=== PATIENT | female | born 1985 | race Caucasian/White ===

== ENCOUNTER 2018-04-21 06:43 | Inpatient (IN) ==
[2018-04-21 07:03] VITALS: RESP 18
[2018-04-21] MEDS ORDERED: Sodium Chlor 0.9% Inj 500 ML IV.SIG PRN (08:40)
[2018-04-21] MEDS ORDERED: Naloxone Inj 0.4 MG/ML Vial IV.PUSH PRN ×2 (08:40→16:50)
[2018-04-21] MEDS ORDERED: fentaNYL Citrate Inj 100 MCG/2 ML Ampul IV.PUSH PRN ×2 (08:40)
[2018-04-21] MEDS ORDERED: Sod Chloride 0.9% Inj 1,000 ML IV.CONT PRN (08:40)
[2018-04-21] MEDS ORDERED: Oxytocin 30 Units/500ml Premix 30 UNITS/500 ML BAG IV.SIG ONE (08:40)
[2018-04-21] MEDS ORDERED: Citric Acid/Sodium Citrate Liq 30 ML UDC PO SCH (08:45)
[2018-04-21 08:57] LABS: Baso % (Auto) 0.2 % (0.0-2.0); Eos % (Auto) 0.1 % (0.0-4.0); Hematocrit 29.4 % (35.0-46.0); Hemoglobin 10.1 gm/dL (11.6-15.3); Lymph # (Auto) 1.8 th/mm3 (1.0-4.8); Lymph % (Auto) 22.7 % (9.0-44.0); Mean Corpuscular HGB Conc 34.3 % (32.0-36.0); Mean Corpuscular Hemoglobin 28.1 pg (27.0-34.0); Mean Corpuscular Volume 81.9 fL (80.0-100.0); Mean Platelet Volume 7.7 fL (7.0-11.0); Mono # (Auto) 0.4 th/mm3 (0.0-0.9); Mono % (Auto) 5.4 % (0.0-8.0); Neut # (Auto) 5.8 th/mm3 (1.8-7.7); Neut % (Auto) 71.6 % (16.0-70.0); Platelet Count 269 th/mm3 (150-450); Red Blood Count 3.59 mil/mm3 (4.00-5.30); Red Cell Distribution Width 13.8 % (11.6-17.2); White Blood Count 8.1 th/mm3 (4.0-11.0)
[2018-04-21 09:08] LABS: Amphetamine Urine With Conf Neg (Neg); Benzodiazepine Urine With Conf Neg (Neg)
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
[2018-04-21] MEDS ORDERED: Penicillin G Potassium Inj 5,000,000 UNIT in Sodium Chloride 0.9% Inj 100 ML IV.SIG ONE (09:30)
[2018-04-21] MEDS ORDERED: Oxytocin 30 Units/500ml Premix 30 UNITS/500 ML BAG IV.SIG PRN (12:00)
[2018-04-21] MEDS ORDERED: Penicillin G Potassium Inj 2,500,000 UNIT in Sodium Chlor 0.9% Inj 100 ML IV.SIG SCH (14:00)
[2018-04-21] MEDS ORDERED: fentaNYL 2MCG-Bupiv 0.125% Epi 150 ML EPIDURAL ONE (15:30)
[2018-04-21] MEDS ORDERED: Zolpidem Tartrate 5 MG Tablet PO PRN (16:50)
[2018-04-21] MEDS ORDERED: Witch Hazel 50%/Glyderin 12.5% 40 Pad Jar RECTAL PRN (16:50)
[2018-04-21] MEDS ORDERED: Benzocaine 20% Top Spray 60 ML Can TOPICAL PRN (16:50)
[2018-04-21] MEDS ORDERED: Bisacodyl 10 MG Supp RECTAL PRN (16:50)
--- NOTE | 2018-04-21 16:58 | P.OBDELI ---
Weeks Gestation: 39 Medical Induction of Labor: Yes Artificial Rupture of Membrane: Yes Anesthesia: Epidural Episiotomy: none Vaginal Delivery: Normal Presentation: Occiput anterior Nuchal Cord: None Delayed Cord Clamping (45 sec): Yes Placenta: Spontaneous delivery, Intact Laceration: None Estimated blood loss (mL): 100 Infant: Female Infant Female A score (1 min): 9 score (5 min): 9 Additional Information: Head delivered by maternal effort. No nuchal cord appreciated. Anterior shoulder delivered without complication. Placenta delivered without complication. No lacerations. Addendum I personally attended and supervised this delivery
[2018-04-21] MEDS ORDERED: fentaNYL 2MCG-Bupiv 0.125% Epi 150 ML EPIDURAL PRN (17:50)
[2018-04-21] MEDS ORDERED: fentaNYL Citrate Inj 100 MCG/2 ML Ampul EPIDURAL ONE (17:50)
[2018-04-21] MEDS ORDERED: Measles/Mumps/Rubella Vaccine Inj 0.5 ML Vial SQ ONE (18:00)
[2018-04-21] MEDS ORDERED: Diphtheria/Tetanus/Pertussis Vaccine Inj 0.5 ML Syringe IM ONE (18:00)
[2018-04-21] MEDS ORDERED: Oxytocin 30 Units/500ml Premix 30 UNITS/500 ML BAG IV.CONT SCH (18:00)
[2018-04-21] MEDS: Ibuprofen 400 MG Tablet PO PRN (23:05)
[2018-04-21] MEDS: Acetaminophen 325 MG Tablet PO PRN (23:06)
[2018-04-21] MEDS: Senna/Docusate Sodium 8.6/50 MG Tablet PO SCH (23:07)
[2018-04-22] MEDS: Acetaminophen 325 MG Tablet PO PRN ×2 (08:15→19:53)
[2018-04-22] MEDS: Ibuprofen 400 MG Tablet PO PRN (08:15)
--- NOTE | 2018-04-22 08:36 | P.PNOB ---
Subjective Post day: 1 Interval history: Patient is a 32-year-old delivered at 39 weeks and 0 days. Patient is day 1after . Patient's pain is well-controlled. Having some back pain from epidural placement. Patient reports eating and drinking without any nausea or vomiting. Patient reports minimal bleeding. Patient has not passed gas and bowel movements. Patient is walking without lower extremity pain or shortness of breath. Patient reports desire for contraception different than depo shot. She is formula feeding Objective Vital Signs/I&O: Vital Signs 04/21/18 09:05 04/21/18 17:30 04/21/18 18:00 Temperature 99.0 F Pulse Rate 72 67 69 Respiratory Rate 18 18 18 Blood Pressure 107/67 126/71 124/91 H 04/21/18 18:45 04/22/18 08:27 Temperature 98.5 F 98.2 F Pulse Rate 69 88 Respiratory Rate 18 Blood Pressure 122/69 118/71 Intake & Output 04/21/18 04/22/18 04/22/18 18:59 06:59 18:59 Weight 76.657 kg Other: Weight On Admission 76.657 kg Result Diagrams: 04/21/18 08:32 Objective Remarks: GENERAL: Well-nourished, well-developed patient. CARDIOVASCULAR: Regular rate and rhythm without murmurs, gallops, or rubs. RESPIRATORY: Breath sounds equal bilaterally. No accessory muscle use. ABDOMEN/GI: Abdomen soft, non-tender. Fundus: Firm, non-tender at umbilicus. GENITOURINARY: Light to moderate bleeding. EXTREMITIES: No cyanosis or edema, non-tender, without signs of DVT. MSK: back some tenderness but no bruising Medications and IVs: Active Medications Acetaminophen (Tylenol) 650 mg PO Q4H PRN PRN Reason: PAIN SCALE 1 TO 2 Last Admin: 04/21/18 23:06 Dose: 650 mg Al Hydroxide/Mg Hydroxide (Milk Of Magnesia Liq) 30 ml PO Q12H PRN PRN Reason: Mild Constipation Benzocaine (Americaine 20% Top [place]) 1 spray TOPICAL Q4H PRN PRN Reason: For Perineum Discomfort Bisacodyl (Dulcolax Supp) 10 mg RECTAL DAILY PRN PRN Reason: SEVERE CONSITIPATION Ephedrine Sulfate (Ephedrine/Ns Syringe) 10 mg IV.PUSH UNSCH PRN PRN Reason: SEE LABEL COMMENTS Stop: 04/22/18 17:50 Fentanyl/Bupivacaine/Sodium Chlor (Fentanyl 2 Mcg-Bupiv 0.125% Epi) 150 mls @ 10 mls/hr EPIDURAL PRN PRN PRN Reason: for Labor Pain Oxytocin (Pitocin 30 Units/Ns 500 Ml Premix) 30 units in 500 mls @ 2 mls/hr IV.SIG TITRATE PRN; Protocol PRN Reason: For induction of labor Last Admin: 04/21/18 11:38 Dose: 2 milliunit/min, 2 mls/hr Lactulose (Lactulose Liq) 30 ml PO DAILY PRN PRN Reason: SEVERE CONSITIPATION Miscellaneous Information (Misc Information) 1 each OTHER UNSCH PRN PRN Reason: SEE LABEL COMMENTS Stop: 04/22/18 17:50 Miscellaneous Information (Misc Information) 1 each OTHER UNSCH PRN PRN Reason: SEE LABEL COMMENTS Stop: 04/22/18 17:50 Naloxone HCl (Narcan Inj) 0.1 mg IV.PUSH Q2M PRN PRN Reason: for opiate reversal Ondansetron HCl (Zofran Odt) 4 mg PO Q6H PRN PRN Reason: NAUSEA OR VOMITING Senna/Docusate Sodium (Shy-Colace) 1 tab PO BID BRYANT Last Admin: 04/21/18 23:07 Dose: 1 tab Sennosides (Senokot) 17.2 mg PO Q12H PRN PRN Reason: Moderate Constipation Sodium Chloride (Ns Flush) 2 ml IV.FLUSH BID BRYANT Sodium Chloride (Ns Flush) 2 ml IV.FLUSH UNSCH PRN PRN Reason: FLUSH AFTER USING IV ACCESS Last Admin: 04/21/18 23:08 Dose: 2 ml Witch Ginger/Glycerin (Tucks Pads) 1 applicatio RECTAL QID PRN PRN Reason: HEMORRHOIDS Zolpidem Tartrate (Ambien) 5 mg PO HS PRN PRN Reason: SLEEP Assessment and Plan - Plan Patient is a 32-year-old delivered at 39 weeks and 0 days. Patient is day 1 after . Patient was counseled to do 6 weeks of pelvic rest. Patient was counseled to follow up in 6 weeks. Patient requested follow-up and contraception. --AF VSS --Continue routine care --Motrin and Tylenol when necessary for pain --Encourage OOB --Pelvic rest for 6 weeks will need follow-up appointment at that time. --Contraception: considering; had weight gain on Depo shot --Anticipate discharge tomorrow
[2018-04-22] MEDS: Senna/Docusate Sodium 8.6/50 MG Tablet PO SCH ×2 (10:41→22:08)
--- NOTE | 2018-04-23 07:11 | P.PNOB ---
Subjective Post day: 2 Interval history: Patient is a 32-year-old delivered at 39 weeks and 0 days. Patient is day 2 after . Patient's pain is well-controlled. Having some back pain from epidural placement. Patient reports eating and drinking without any nausea or vomiting. Patient reports minimal bleeding. Patient has passed gas and had bowel movement. Patient is walking without lower extremity pain or shortness of breath. Patient reports desire for contraception different than depo shot and will discuss outpatient. She is formula feeding Objective Vital Signs/I&O: Vital Signs 04/22/18 08:00 04/22/18 08:27 04/22/18 10:40 Temperature 98.7 F 98.2 F Pulse Rate 88 88 Respiratory Rate 18 18 18 Blood Pressure 118/71 118/71 04/22/18 20:00 Temperature 97.7 F Pulse Rate 65 Respiratory Rate 18 Blood Pressure 112/67 Result Diagrams: 04/21/18 08:32 Objective Remarks: GENERAL: Well-nourished, well-developed patient. CARDIOVASCULAR: Regular rate and rhythm without murmurs, gallops, or rubs. RESPIRATORY: Breath sounds equal bilaterally. No accessory muscle use. ABDOMEN/GI: Abdomen soft, non-tender. Fundus: Firm, non-tender at umbilicus. GENITOURINARY: Light to moderate bleeding. EXTREMITIES: No cyanosis or edema, non-tender, without signs of DVT. Medications and IVs: Active Medications Acetaminophen (Tylenol) 650 mg PO Q4H PRN PRN Reason: PAIN SCALE 1 TO 2 Last Admin: 04/22/18 19:53 Dose: 650 mg Al Hydroxide/Mg Hydroxide (Milk Of [place] Liq) 30 ml PO Q12H PRN PRN Reason: Mild Constipation Benzocaine (Americaine 20% Top [place]) 1 spray TOPICAL Q4H PRN PRN Reason: For Perineum Discomfort Bisacodyl (Dulcolax Supp) 10 mg RECTAL DAILY PRN PRN Reason: SEVERE CONSITIPATION Fentanyl/Bupivacaine/Sodium Chlor (Fentanyl 2 Mcg-Bupiv 0.125% Epi) 150 mls @ 10 mls/hr EPIDURAL PRN PRN PRN Reason: for Labor Pain Oxytocin (Pitocin 30 Units/Ns 500 Ml Premix) 30 units in 500 mls @ 2 mls/hr IV.SIG TITRATE PRN; Protocol PRN Reason: For induction of labor Last Admin: 04/21/18 11:38 Dose: 2 milliunit/min, 2 mls/hr Lactulose (Lactulose Liq) 30 ml PO DAILY PRN PRN Reason: SEVERE CONSITIPATION Naloxone HCl (Narcan Inj) 0.1 mg IV.PUSH Q2M PRN PRN Reason: for opiate reversal Ondansetron HCl (Zofran Odt) 4 mg PO Q6H PRN PRN Reason: NAUSEA OR VOMITING Senna/Docusate Sodium (Shy-Colace) 1 tab PO BID [facility] Last Admin: 04/22/18 22:08 Dose: 1 tab Sennosides (Senokot) 17.2 mg PO Q12H PRN PRN Reason: Moderate Constipation Sodium Chloride (Ns Flush) 2 ml IV.FLUSH BID [facility] Last Admin: 04/22/18 10:40 Dose: Not Given Sodium Chloride (Ns Flush) 2 ml IV.FLUSH UNSCH PRN PRN Reason: FLUSH AFTER USING IV ACCESS Last Admin: 04/21/18 23:08 Dose: 2 ml Witch Ginger/Glycerin (Tucks Pads) 1 applicatio RECTAL QID PRN PRN Reason: HEMORRHOIDS Zolpidem Tartrate (Ambien) 5 mg PO HS PRN PRN Reason: SLEEP Assessment and Plan - Plan Patient is a 32-year-old delivered at 39 weeks and 0 days. Patient is day 2 after . Patient was counseled to do 6 weeks of pelvic rest. Patient was counseled to follow up in 6 weeks. Patient requested follow-up and contraception. --Continue routine care --Motrin and Tylenol when necessary for pain --Encourage OOB --Pelvic rest for 6 weeks will need follow-up appointment at that time. --Contraception: will discuss outpatient --Discharge today
[2018-04-23] MEDS: Senna/Docusate Sodium 8.6/50 MG Tablet PO SCH (08:25)
[2018-04-23] MEDS: Acetaminophen 325 MG Tablet PO PRN (08:25)
[2018-04-23 08:53] VITALS: BP 125/74; PULSE 64
[2018-04-23 08:54] VITALS: TEMP 97.5
== END 2018-04-23 17:05 | disposition home or self-care (01) ==
LOC: H2E 06:43 → H1EA 18:34
PROVIDERS: ADMIT Obstetrics & Gynecology Maternal & Fetal Medicine; ATTEND Obstetrics & Gynecology Maternal & Fetal Medicine